=== PATIENT | female | born 1985 | race Caucasian/White ===

== ENCOUNTER 2016-11-19 20:54 | Observation (INO) | payer BC ==
[2016-11-19] MEDS ORDERED: ACETAMINOPHEN 325 MG TABLET PO ONE (22:33)
--- NOTE | 2016-11-20 02:30 | ER Document Report ---
ED GI/ - General Chief Complaint: Abdominal Pain Stated Complaint: RIGHT FLANK PAIN/PHYSICIAN REFERRED Notes: The patient is a 31-year-old female who presents with 2 days of periumbilical pain radiating to her right lower quadrant. She had an outpatient CT performed by her primary care physician that showed acute appendicitis and was told to go to the emergency room. She is also feeling slightly nauseous, but denies vomiting, urinary symptoms, flank pain, fevers, chest pain or SOB. TRAVEL OUTSIDE OF THE [place] IN LAST 30 DAYS: No - Related Data Allergies/Adverse Reactions: No Known Allergies Allergy (Unverified 11/19/16 21:05) Past Medical History - General Information source: Patient - Social History Smoking Status: Unknown if Ever Smoked Family History: Reviewed & Not Pertinent Patient has suicidal ideation: No Patient has homicidal ideation: No Renal/ Medical History: Denies: Hx Peritoneal Dialysis Review of Systems - Review of Systems Notes: REVIEW OF SYSTEMS: CONSTITUTIONAL: -fevers, -chills EENT: -eye pain, -difficulty swallowing, -nasal congestion CARDIOVASCULAR:-chest pain, -syncope. RESPIRATORY: -cough, -SOB GASTROINTESTINAL: +abdominal pain, +nausea, -vomiting, -diarrhea GENITOURINARY: -dysuria, -hematuria MUSCULOSKELETAL: -back pain, -neck pain SKIN: -rash or skin lesions. HEMATOLOGIC: -easy bruising or bleeding. LYMPHATIC: -swollen, enlarged glands. NEUROLOGICAL: -altered mental status or loss of consciousness, -headache, - neurologic symptoms PSYCHIATRIC: -anxiety, -depression. ALL OTHER SYSTEMS REVIEWED AND NEGATIVE. Physical Exam - Vital signs Vitals: Temp Pulse Resp BP Pulse Ox 97.6 F 94 17 135/92 H 100 11/19/16 21:00 11/19/16 21:00 11/19/16 21:00 11/19/16 21:00 11/19/16 21:00 - Notes Notes: PHYSICAL EXAMINATION: GENERAL: Mildly uncomfortable. HEAD: Atraumatic, normocephalic. EYES: Pupils equal round and reactive to light, extraocular movements intact, sclera anicteric, conjunctiva are normal. ENT: nares patent, oropharynx clear without exudates. Moist mucous membranes. NECK: Normal range of motion, supple without lymphadenopathy LUNGS: Breath sounds clear to auscultation bilaterally and equal. No wheezes rales or rhonchi. HEART: Regular rate and rhythm without murmurs ABDOMEN: Soft, moderate periumbilical and RLQ tenderness, normoactive bowel sounds. No guarding, no rebound. No masses appreciated. EXTREMITIES: Normal range of motion, no pitting or edema. No cyanosis. NEUROLOGICAL: Cranial nerves grossly intact. Normal speech, normal gait. Normal sensory, motor, and reflex exams. PSYCH: Normal mood, normal affect. SKIN: Warm, Dry, normal turgor, no rashes or lesions noted. Course - Re-evaluation Re-evalutation: 11/20/16 02:42 Pt seen immediately when she had a room in the ER. Long waiting room time due to nursing shortage in ER. Spoke to Dr. Deras (Surgeon configuration management architect) . Will begin antibiotics and he will call in surgical team. Pt being kept NPO. - Vital Signs Vital signs: Temp Pulse Resp BP Pulse Ox 97.6 F 94 17 135/92 H 100 11/19/16 21:00 11/19/16 21:00 11/19/16 21:00 11/19/16 21:00 11/19/16 21:00 - Diagnostic Test Radiology reviewed: Image reviewed, Reports reviewed Radiology results interpreted by me: CT A/P (Outpatient): Acute appendicitis Discharge - Discharge Clinical Impression: Acute appendicitis Qualifiers: Acute appendicitis type: with localized peritonitis Qualified Code(s): K35.3 - Acute appendicitis with localized peritonitis Condition: Stable Disposition: ADMITTED INPATIENT Admitting Provider: Surgicalist - [place] Unit Admitted: Surgical Floor
[2016-11-20] MEDS ORDERED: AMPICILLIN SOD/SULBACTAM 3 GM VIAL IV ONE (02:32)
[2016-11-20] MEDS ORDERED: KETOROLAC TROMETHAMINE INJ/PF 30 MG/1 ML SDV IV ONE (02:35)
[2016-11-20] MEDS ORDERED: ONDANSETRON HCL INJ/PF 4 MG/2 ML SDV IV ONE (02:36)
[2016-11-20 02:54] LABS: ABSOLUTE EOSINOPHILS # (AUTO) 0.3 10^3/uL (0.0-0.6); ABSOLUTE LYMPHOCYTES (AUTO) 1.2 10^3/uL (0.5-4.7); ABSOLUTE MONOCYTES (AUTO) 0.3 10^3/uL (0.1-1.4); ABSOLUTE NEUT (AUTO) 5.7 10^3/uL (1.7-8.2); ANION GAP 15 (5-19); BASOPHILS % (AUTO) 0.5 % (0-2); BLOOD UREA NITROGEN 11 mg/dL (7-20); CALCIUM 9.7 mg/dL (8.4-10.2); CARBON DIOXIDE 26 mmol/L (22-30); CHLORIDE 99 mmol/L (98-107); CREATININE RESULT 0.84 mg/dL (0.52-1.25); EOSINOPHILS % (AUTO) 4.1 % (0-6); GLUCOSE 99 mg/dL (75-110); HEMATOCRIT 41.6 % (36.0-47.0); HEMOGLOBIN 14.3 g/dL (12.0-15.5); HGB HCT DIFFERENCE 1.3; LYMPHOCYTES % (AUTO) 16.3 % (13-45); MEAN CORPUSCULAR HEMOGLOBIN 32.2 pg (27.0-33.4); MEAN CORPUSCULAR HGB CONC 34.5 g/dL (32.0-36.0); MEAN CORPUSCULAR VOLUME 93 fl (80-97); POTASSIUM 4.2 mmol/L (3.6-5.0); RED BLOOD COUNT 4.45 10^6/uL (3.72-5.28); RED CELL DISTRIBUTION WIDTH 12.4 % (11.5-14.0); SEGMENTED NEUTROPHILS % (AUTO) 75.1 % (42-78); SODIUM 140.3 mmol/L (137-145); WHITE BLOOD COUNT 7.5 10^3/uL (4.0-10.5)
[2016-11-20 03:45] LABS: APPEARANCE,URINE CLEAR; BILIRUBIN,URINE NEGATIVE (NEGATIVE); GLUCOSE, URINE NEGATIVE (NEGATIVE); KETONES,URINE NEGATIVE (NEGATIVE); LEUKOCYTE ESTERASE,URINE NEGATIVE (NEGATIVE); NITRITE,URINE NEGATIVE (NEGATIVE); PROTEIN,URINE NEGATIVE (NEGATIVE); UROBILINOGEN,URINE NEGATIVE mg/dL (<2.0)
[2016-11-20 03:55] LABS: PROTHROMBIN TIME 13.3 SEC (11.4-15.4)
[2016-11-20 03:56] LABS: PARTIAL THROMBOPLASTIN TIME 38.2 SEC (23.5-35.8)
[2016-11-20] MEDS ORDERED: DEXTROSE 5%-LACTATED RINGERS 1,000 ML IV PRN (04:17)
[2016-11-20] MEDS ORDERED: MIDAZOLAM 2 MG/2 ML INJ ONE (05:43)
[2016-11-20] MEDS ORDERED: HYDROMORPHONE HCL INJ/PF 2 MG/ML AMPULE ONE (05:43)
[2016-11-20] MEDS ORDERED: IBUPROFEN INJ 800 MG/8 ML VIAL IV ONE (05:44)
[2016-11-20] MEDS ORDERED: ACETAMINOPHEN 100 ML IV ONE (05:44)
[2016-11-20] MEDS ORDERED: PROPOFOL INJ 200 MG/20 ML VIAL IV ONE (05:44)
[2016-11-20] MEDS ORDERED: EPHEDRINE SULFATE INJ 50 MG/1 ML AMPULE ONE (05:44)
--- NOTE | 2016-11-20 06:40 | PDOC H&P ---
History of Present Illness Admission Date/PCP: 11/20/16 04:09 Patient complains of: Abdominal pain History of Present Illness: JESSICA LEBRON is a 31 year old female who complains of a 2 day history of abdominal pain primarily periumbilical with some anorexia. No nausea or vomiting. She went to a care facility and was found to have abdominal tenderness, and had a CT scan of the abdomen and pelvis as well as more hospital with IV and oral contrast which showed findings consistent with an abnormal appendix, possible acute appendicitis. She was also found to have an incidental duplicated right renal collecting system and some scarring of the inferior pole of the kidney. This was attributed to possible urinary reflux disease. The patient was subsequently sent to [facility] emergency department where she continued to have abdominal pain, surgery was consulted and she was advised admission for interval appendectomy. Since admission she has had diarrhea and persisting right lower quadrant pain. Past Medical History Medical History: None Past Surgical History Past Surgical History: Reports: None Social History Smoking Status: Unknown if Ever Smoked Frequency of Alcohol Use: None Hx Recreational Drug Use: No Hx Prescription Drug Abuse: No - Advance Directive Resuscitation Status: Full Code Family History Family History: Reviewed & Not Pertinent Parental Family History Reviewed: Yes Children Family History Reviewed: Yes Sibling(s) Family History Reviewed.: Yes Medication/Allergy Home Medications: No Home Medications 11/20/16 Allergies/Adverse Reactions: No Known Allergies Allergy (Unverified 11/19/16 21:05) Review of Systems Constitutional: ABSENT: chills, fever(s), headache(s), weight gain, weight loss Eyes: ABSENT: visual disturbances Ears: ABSENT: hearing changes Cardiovascular: ABSENT: chest pain, dyspnea on exertion, edema, orthropnea, palpitations Gastrointestinal: PRESENT: as per HPI Genitourinary: ABSENT: dysuria, hematuria Musculoskeletal: ABSENT: joint swelling Integumentary: ABSENT: rash, wounds Neurological: ABSENT: abnormal gait, abnormal speech, confusion, dizziness, focal weakness, syncope Physical Exam Vital Signs: Temp Pulse Resp BP Pulse Ox 97.8 F 63 16 114/63 100 11/20/16 05:36 11/20/16 05:36 11/20/16 05:36 11/20/16 05:36 11/20/16 05:36 General appearance: PRESENT: no acute distress Head exam: PRESENT: normocephalic Eye exam: PRESENT: EOMI Ear exam: PRESENT: normal external ear exam Neck exam: PRESENT: full ROM Respiratory exam: PRESENT: clear to auscultation queta Cardiovascular exam: PRESENT: RRR Pulses: PRESENT: normal carotid pulses, normal dorsalis pedis pul GI/Abdominal exam: PRESENT: other - Soft, not distended; tenderness to the abdomen right lower quadrant and slightly medial towards the pelvic region. No guarding no rigidity. Extremities exam: PRESENT: full ROM Neurological exam: PRESENT: alert, altered, awake, oriented to person, oriented to place Psychiatric exam: PRESENT: appropriate affect Results Status: Image reviewed by me - I have reviewed the CT scan of the abdomen and pelvis. There is a thickened appendix with elongation, and minimal periappendiceal inflammatory changes. Assessment & Plan - Diagnosis (1) Acute appendicitis Qualifiers: Acute appendicitis type: with localized peritonitis Qualified Code(s): K35.3 - Acute appendicitis with localized peritonitis Is this a current diagnosis for this admission?: YesPlan: 1. The clinical picture is consistent with mild acute appendicitis based on clinical, serologic, and radiographic findings. I have recommended interval laparoscopic, possible open appendectomy. Reviewed the mechanics of the operation, as well as a discussion of the risks benefits and alternatives including bleeding, infection, need to convert to an open procedure, an additional surgery. She expressed her understanding and agrees to proceed. - Time Time Spent: 30 to 50 Minutes Critical Time spent with patient: 15-24 minutes Medications reviewed and adjusted accordingly: Yes - Inpatient Certification Medical Necessity: Need For IV Fluids, Need for Pain Control, Need for IV Antibiotics, Need for Surgery
[2016-11-20] MEDS ORDERED: BUPIVACAINE HCL 0.25 % INJ/PF (2.5 MG/1 ML) 30 ML VIAL INJ ONE ×2 (07:05)
[2016-11-20] MEDS ORDERED: MORPHINE SULFATE 10 MG/ML INJ IV PRN ×2 (07:36→07:57)
[2016-11-20] MEDS ORDERED: ONDANSETRON HCL INJ/PF 4 MG/2 ML SDV IV PRN (07:36)
--- NOTE | 2016-11-20 07:41 | Operative Report ---
Operative Report DATE OF SURGERY: 11/20/16 PREOPERATIVE DIAGNOSIS: Acute appendicitis POSTOPERATIVE DIAGNOSIS: Same OPERATION: Laparoscopic appendectomy SURGEON: ISAAC GUERIN ANESTHESIA: GA TISSUE REMOVED OR ALTERED: One appendix COMPLICATIONS: None ESTIMATED BLOOD LOSS: scant INTRAOPERATIVE FINDINGS: See below PROCEDURE: The patient was taken to the preoperative holding area to the main operating room where general anesthesia was induced. Patient had voided prior to transfer. The abdomen was exposed, prepped and draped in a sterile fashion. Surgical plan and surgical timeout were conducted. Skin was anesthetized with quarter percent Marcaine. Horizontal supraumbilical incision was made with the knife varies needle inserted. A Veress needle was inserted into the peritoneal cavity and pneumoperitoneum was established. Veress needle was removed and a 5 mm trocar was inserted and a 5 mm flexible scope was inserted. Under direct visualization 2 additional ports placed one 5 mm pubic physician and a 12 mm the left lower quadrant. Findings were significant for an enlarged thickened walled appendix without perforation and without phlegmon. He was minimal serous fluid in the pelvis. The right tube and ovary appeared grossly normal. We felt that the appendix was diseased and should be removed. The peritoneal reflection was taken down sharply releasing the cecum from the lateral and inferior pelvic wall. The next was divided using a single firing of the Ethicon stapler, white load and the appendix proper was taken at its base and a second firing of the Ethicon stapler, blue load, 45 mm. The appendix is placed in an Endobag and brought out of the patient to the left lower quadrant port site. We returned to the peritoneal cavity checked for bleeding and there was no mechanical bleeding. Also correct. All ports removed under direct visualization, pneumoperitoneum evacuated, wounds closed 0 Vicryl 3-0 Vicryl benzoin and Steri-Strips. Patient tolerated the procedure well. Patient was extubated and taken to recovery in stable condition.
[2016-11-20] MEDS ORDERED: DIPHENHYDRAMINE HCL 50 MG/ML VIAL IV PRN (07:57)
[2016-11-20] MEDS ORDERED: PROMETHAZINE HCL INJ 25 MG/1 ML VIAL IV PRN ×2 (07:57)
[2016-11-20] MEDS ORDERED: FENTANYL CITRATE INJ/PF 100 MCG/2 ML AMPUL IV PRN ×3 (07:57)
[2016-11-20] MEDS ORDERED: MEPERIDINE HCL/PF INJ 25 MG/1 ML DISP.SYRIN IV PRN (07:57)
[2016-11-20] MEDS ORDERED: ONDANSETRON HCL INJ/PF 4 MG/2 ML SDV ONE ×2 (08:15→15:54)
[2016-11-20] MEDS ORDERED: RINGERS SOLUTION,LACTATED 1,000 ML IV PRN (08:47)
[2016-11-20] MEDS ORDERED: PROMETHAZINE HCL 25 MG SUPP.RECT PR ONE (09:00)
[2016-11-20] MEDS ORDERED: METOCLOPRAMIDE HCL INJ/PF 10 MG/2 ML SDV ONE (15:54)
[2016-11-20] MEDS ORDERED: GLYCOPYRROLATE INJ 0.4 MG/2 ML VIAL ONE (15:54)
[2016-11-20] MEDS ORDERED: DEXAMETHASONE SOD PHOSPHATE INJ 4 MG/1 ML VIAL ONE (15:54)
[2016-11-20] MEDS ORDERED: SUCCINYLCHOLINE CHLORIDE INJ 200 MG/10 ML VIAL ONE (15:54)
[2016-11-20] MEDS ORDERED: NEOSTIGMINE METHYLSULFATE 10 MG/10 ML VIAL ONE (15:54)
[2016-11-20] MEDS ORDERED: LIDOCAINE 2% INJ-PF (20 MG/ML) 10 ML AMPUL ONE (15:54)
[2016-11-20] MEDS ORDERED: ROCURONIUM BROMIDE INJ 50 MG/5 ML VIAL IV ONE (15:54)
[2016-11-20] MEDS: OXYCODONE-ACETAMINOPHEN 5-325 MG TABLET PO PRN ×2 (17:43→21:46)
[2016-11-21] MEDS: OXYCODONE-ACETAMINOPHEN 5-325 MG TABLET PO PRN ×3 (06:19→14:24)
[2016-11-21 14:01] VITALS: BP 99/63
--- NOTE | 2016-11-21 17:03 | DISCHARGE SUMMARY E ---
Discharge Summary NAME: JESSICA LEBRON : 1985 AGE: 31Y ADMITTED: 11/20/2016 DISCHARGED: 11/21/2016 ADMITTING DIAGNOSIS: Acute appendicitis. DISCHARGE DIAGNOSIS: Acute appendicitis. OPERATIVE INTERVENTIONS DONE: Laparoscopic appendectomy. The patient was admitted by Dr. Deras and lease buyer yesterday, she underwent a laparoscopic appendectomy. Postoperatively, she was admitted for IV antibiotic and pain management. This morning, the patient feels comfortable, afebrile, tolerating diet. EXAMINATION: VITAL SIGNS: She is afebrile. ABDOMEN: Soft, nontender. ASSESSMENT AND PLAN: Her appendix was nonperforated so she is doing very well. Will discharge her home. DISCHARGE MEDICATIONS: [place] for the pain and stool softeners. FOLLOWUP PLAN: Surgical clinic in 2 weeks. At the time of discharge, the patient doing very well. DICTATING PHYSICIAN: ISELA JEONG M.D. [id number] PHY#: [id number] ID: [id number] JOB#: [id number] ACCT: [id number] cc:Karson LA M.D. >
== END 2016-11-21 14:20 | disposition home or self-care (01) ==
LOC: ER 20:54 → UNDOADMIN 11-20 02:55 → EH 11-20 02:55 → 4N 11-20 03:50 → EH 11-20 03:50 → INTOOBSV 11-20 04:09 → 4N 11-20 04:09
PROVIDERS: ADMIT Surgery; ATTEND Surgery
PROC: 0DTJ4ZZ Resection of Appendix, Percutaneous Endoscopic Approach (ICD-10-PCS; principal; 2016-11-20 06:00)
DX: K35.80 Unspecified acute appendicitis (principal); Q63.8 Other specified congenital malformations of kidney
CPT/HCPCS: 44970; 99284; 36415; 85025; 85610; 85730; 81025; 80048; 81001; 88304 ×2; G0378 ×2; J2250; J3490 ×3; J1100; J0295; J1885; J2765; J1170; J0330; J2405; J2704; J0131; J1741; 840

== ENCOUNTER → 2016-11-19 | Outpatient (CLI) | payer BC ==
[~2016-11-19] MED LIST: BUPIVACAINE HCL 0.25 % INJ/PF (2.5 MG/1 ML) 30 ML VIAL ONE; DEXMEDETOMIDINE INJ 80 MCG/20 ML VIAL IV ONE; FENTANYL CITRATE INJ/PF 100 MCG/2 ML AMPUL ONE; SCOPOLAMINE HYDROBROMIDE 1.5 MG PATCH.TD72 ONE
== END ==
LOC: RAD 15:56
PROVIDERS: ATTEND Nurse Practitioner Family
DX: R14.0 Abdominal distension (gaseous) (principal)
CPT/HCPCS: 74177

== ENCOUNTER 2018-06-05 07:09 | Day surgery (SDC) | payer BC ==
[2018-05-30 10:46] LABS: HEMATOCRIT 41.6 % (36.0-47.0); HEMOGLOBIN 14.9 g/dL (12.0-15.5); MEAN CORPUSCULAR HEMOGLOBIN 33.6 pg (27.0-33.4); MEAN CORPUSCULAR HGB CONC 35.9 g/dL (32.0-36.0); MEAN CORPUSCULAR VOLUME 94 fl (80-97); PLATELET COUNT 256 10^3/uL (150-450); RED BLOOD COUNT 4.44 10^6/uL (3.72-5.28); RED CELL DISTRIBUTION WIDTH 12.4 % (11.5-14.0); WHITE BLOOD COUNT 5.9 10^3/uL (4.0-10.5)
[2018-05-30 11:07] LABS: APPEARANCE,URINE CLEAR; BILIRUBIN,URINE NEGATIVE (NEGATIVE); COLOR,URINE YELLOW; GLUCOSE, URINE NEGATIVE (NEGATIVE); KETONES,URINE NEGATIVE (NEGATIVE); LEUKOCYTE ESTERASE,URINE NEGATIVE (NEGATIVE); NITRITE,URINE NEGATIVE (NEGATIVE); PROTEIN,URINE NEGATIVE (NEGATIVE); URINE SPECIFIC GRAVITY 1.017; UROBILINOGEN,URINE NEGATIVE mg/dL (<2.0)
[2018-05-30 11:15] LABS: ALANINE AMINOTRANSFERASE 35 U/L (9-52); ALBUMIN 4.7 g/dL (3.5-5.0); ALKALINE PHOSPHATASE 58 U/L (38-126); ANION GAP 14 (5-19); ASPARTATE AMINO TRANSFERASE 21 U/L (14-36); BILIRUBIN,DIRECT 0.2 mg/dL (0.0-0.4); BILIRUBIN,TOTAL 1.3 mg/dL (0.2-1.3); BLOOD UREA NITROGEN 12 mg/dL (7-20); CALCIUM 9.8 mg/dL (8.4-10.2); CARBON DIOXIDE 29 mmol/L (22-30); CHLORIDE 100 mmol/L (98-107); GLUCOSE 87 mg/dL (75-110); POTASSIUM 4.5 mmol/L (3.6-5.0); SODIUM 142.9 mmol/L (137-145); TOTAL PROTEIN 7.9 g/dL (6.3-8.2)
[~2018-06-05 07:09] MED LIST changes: +ACETAMINOPHEN 1,000 MG/100 ML RTUPB IV ONE; -BUPIVACAINE HCL 0.25 % INJ/PF (2.5 MG/1 ML) 30 ML VIAL ONE; +CEFAZOLIN 1 GM/D5W RTU 1 GM/50 ML RTUPB IV PRN; +DEXAMETHASONE SOD PHOSPHATE INJ 4 MG/1 ML VIAL ONE; -DEXMEDETOMIDINE INJ 80 MCG/20 ML VIAL IV ONE; +LACTATED RINGERS 1000 ML IV PRN; +LIDOCAINE 0.5% INJ-PF (5 MG/ML) 50 ML SDV SUBCUT PRN; +LIDOCAINE 2% INJ-PF (20 MG/ML) 10 ML AMPUL ONE; +MIDAZOLAM 2 MG/2 ML INJ ONE; +ONDANSETRON HCL INJ/PF 4 MG/2 ML SDV ONE; +PROPOFOL INJ 200 MG/20 ML VIAL IV ONE; -SCOPOLAMINE HYDROBROMIDE 1.5 MG PATCH.TD72 ONE
[2018-06-05] MEDS ORDERED: CEFAZOLIN 1 GM/D5W RTU 1 GM/50 ML RTUPB IV ONE (07:20)
[2018-06-05] MEDS ORDERED: SCOPOLAMINE HYDROBROMIDE 1.5 MG PATCH.TD72 ONE (07:21)
[2018-06-05] MEDS ORDERED: METOCLOPRAMIDE HCL INJ/PF 10 MG/2 ML SDV ONE (07:46)
[2018-06-05] MEDS ORDERED: MEPERIDINE HCL/PF INJ 25 MG/1 ML DISP.SYRIN IV PRN (08:41)
[2018-06-05] MEDS ORDERED: PROMETHAZINE HCL INJ 25 MG/1 ML VIAL IV PRN ×2 (08:41)
[2018-06-05] MEDS ORDERED: DIPHENHYDRAMINE HCL 50 MG/ML VIAL IV PRN (08:41)
[2018-06-05] MEDS ORDERED: MORPHINE SULFATE 10 MG/ML INJ IV PRN (08:41)
[2018-06-05] MEDS ORDERED: ONDANSETRON HCL INJ/PF 4 MG/2 ML SDV IV PRN (08:41)
[2018-06-05] MEDS ORDERED: FENTANYL CITRATE INJ/PF 100 MCG/2 ML AMPUL IV PRN ×3 (08:41)
[2018-06-05] MEDS ORDERED: KETOROLAC TROMETHAMINE INJ/PF 30 MG/1 ML SDV ONE (09:36)
[2018-06-05] MEDS ORDERED: MORPHINE SULFATE 10 MG/ML INJ ONE (09:54)
[2018-06-05] MEDS ORDERED: FENTANYL CITRATE INJ/PF 100 MCG/2 ML AMPUL ONE (09:56)
[2018-06-05] MEDS ORDERED: PROMETHAZINE HCL INJ 25 MG/1 ML VIAL ONE (09:56)
[2018-06-05] MEDS: OXYCODONE-ACETAMINOPHEN 5-325 MG TABLET PO PRN ×2 (11:03→17:14)
--- NOTE | 2018-06-05 12:51 | OPERATIVE REPORT E ---
Operative Report NAME: JESSICA LEBRON : 1985 AGE: 33Y DATE OF SURGERY: 06/05/2018 ROOM: 210 PREOPERATIVE DIAGNOSIS: 1. DYSMENORRHEA. 2. HYPERMENORRHEA. 3. ADENOMYOSIS. POSTOPERATIVE DIAGNOSIS: 1. DYSMENORRHEA. 2. HYPERMENORRHEA. 3. ADENOMYOSIS. OPERATION: Total vaginal hysterectomy. SURGEON: Edmundo BAKER M.D. ANESTHESIA: General. ESTIMATED BLOOD LOSS: Less than 100 mL. TISSUE REMOVED OR ALTERED: Uterus. PROCEDURE: The patient was placed in the dorsal lithotomy position, prepped and draped in sterile fashion. A speculum was placed and the cervix was grasped with Aby thyroid clamp. Posterior cul-de-sac was entered with sharp dissection. Posterior parietal peritoneum was sutured to the posterior cuff with 2-0 Vicryl. Left uterosacral was clamped, divided, and sutured with 2-0 Vicryl, repeated on the right. The cervix was sharply circumscribed and the anterior parietal peritoneum was entered with sharp dissection. Each pedicle was then clamped, divided, and sutured with 2-0 Vicryl. Continued to the level of the utero-ovarian ligament, which was crossclamped and uterus removed. The utero-ovarian ligament was sutured with free tie of 2-0 Vicryl followed by a suture tie of 2-0 Vicryl. The pelvis was inspected and hemostasis was noted. The cuff was then closed with interrupted sutures of 2-0 Vicryl. Hemostasis was noted. The patient's Massey was removed. She tolerated the procedure well and was taken to recovery in good condition. DICTATING PHYSICIAN: Edmundo BAKER M.D. [id number] PHY#: [id number] ID: [id number] JOB#: [id number] ACCT: [id number] cc:Edmundo BAKER M.D. >
[2018-06-05] MEDS ORDERED: ONDANSETRON HCL 8 MG TABLET PO SCH (14:00)
[2018-06-05] MEDS ORDERED: IBUPROFEN 800 MG TABLET PO SCH (14:00)
[2018-06-05] MEDS ORDERED: SUCCINYLCHOLINE CHLORIDE INJ 200 MG/10 ML VIAL ONE (14:22)
[2018-06-05] MEDS ORDERED: VECURONIUM BROMIDE INJ 10 MG VIAL IV ONE (14:22)
[2018-06-05] MEDS ORDERED: GLYCOPYRROLATE 1 MG/5 ML SYRINGE ONE (14:22)
[2018-06-05] MEDS ORDERED: NEOSTIGMINE METHYLSULFATE 10 MG/10 ML VIAL ONE (14:22)
[2018-06-05 17:38] VITALS: BP 107/75
== END 2018-06-05 17:55 | disposition home or self-care (01) ==
LOC: OROUT 07:09 → 2N 10:38 → OROUT 17:55
PROVIDERS: ATTEND Obstetrics & Gynecology Gynecology
DX: D25.9 Leiomyoma of uterus, unspecified (principal); N94.6 Dysmenorrhea, unspecified; N92.0 Excessive and frequent menstruation with regular cycle; N80.0 Endometriosis of uterus; Z87.891 Personal history of nicotine dependence; Z79.899 Other long term (current) drug therapy
CPT/HCPCS: 86900; 86901; 36415; 86850; 85027; 81025; 80053; 81001; 88307 ×2; 58260; J2250; J0690; J1100; J3010; J3490 ×3; J1885; J2765; S0119; J2550; J0330; J2405; J7120; J2704; J0131; 944; J2270